=== PATIENT | male | born 1990 | race Caucasian/White ===

== ENCOUNTER 2017-02-01 11:34 | Emergency (ER) | payer SELFPAY ==
[~2017-02-01] VITALS: Ht 180.3 cm; Wt 76.0 kg
[~2017-02-01 11:34] MED LIST: BACT800T5 PO; CEPH500C3 PO; DILA8TAB4 PO
[2017-02-01 11:38] VITALS: BP 111/67; PULSE 93; RESP 13; O2SAT 96
[2017-02-01] MEDS ORDERED: SODIUM CHLOR 0.9% 1000 ML INJ 1,000 ML IV ONE (11:43)
[2017-02-01] MEDS ORDERED: ONDANSETRON HCL 4 MG/2 ML VIAL IV PUSH ONE (11:45)
[2017-02-01] MEDS ORDERED: SODIUM CHLORIDE 0.9% FLUSH 10 ML FLUSH IVF PRN (11:45)
[2017-02-01 11:46] VITALS: TEMP 97.6; O2SAT 89; O2SAT 98
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
[2017-02-01 12:18] LABS: AUTOMATED NEUTROPHIL # 3.1 TH/MM3 (1.8-7.7); BASOPHIL % 0.2 % (0.0-2.0); EOSINOPHIL # 0.1 TH/MM3 (0-0.4); EOSINOPHIL % 1.1 % (0.0-4.0); HEMATOCRIT 41.5 % (39.0-51.0); HEMO FLAGS DIFF FINAL; MEAN CELL VOLUME 91.7 FL (80.0-100.0); MEAN CORPUSCULAR HEMOGLOBIN 32.3 PG (27.0-34.0); MEAN CORPUSCULAR HGB CONC 35.2 % (32.0-36.0); MONO % 13.9 % (0.0-8.0); NEUT % 63.8 % (16.0-70.0); PLATELET COUNT 131 TH/MM3 (150-450); RED BLOOD COUNT 4.53 MIL/MM3 (4.50-5.90); RED CELL DISTRIBUTION WIDTH 12.9 % (11.6-17.2); WHITE BLOOD COUNT 4.9 TH/MM3 (4.0-11.0)
[2017-02-01 12:20] VITALS: BP 116/67; PULSE 93; RESP 17; O2SAT 100
--- NOTE | 2017-02-01 12:26 | PD ---
Physical Exam Date Seen by Provider: Feb 01, 2017 Time Seen by Provider: 12:00 Narrative I, Dr. Davey, have reviewed the advance practice practitioner's documentation and am in agreement, met with the patient face to face, made the diagnosis, and the medical decision making was done by me. *My assessment and Findings: Patient seen and evaluated with PA, please see PA note for further details. He apparently had taken heroin at around 10:30 AM, was unresponsive, EMS called to the scene and gave him Narcan, is currently awake and oriented. He denies other ingestions, suicidal ideation, or other issues. He is currently GCS 15, oriented 3. Initial lab work done for further evaluation. Planning to observe the patient in the ER for several hours until sober. Patient is reevaluated after several hours of observation and is doing well, wants to leave because he has a parole meeting to go to. At this point, he has no signs of respiratory depression, has no lethargy, and is observed for close to 3 hours, patient is released. He has been warned about his opiate overdose, and this could cause further issues including . He states understanding. Data Data Last Documented VS Vital Signs Date Time Temp Pulse Resp B/P (MAP) Pulse Ox O2 Delivery O2 Flow Rate FiO2 02/01/17 14:38 02/01/17 12:20 93 17 100 Room Air 02/01/17 11:46 97.6 02/01/17 11:46 2.00 Orders Orders Electrocardiogram (02/01/17 11:43) Complete Blood Count With Diff (02/01/17 11:43) Comprehensive Metabolic Panel (02/01/17 11:43) Chest, Single Ap (02/01/17 11:43) Iv Access Insert/Monitor (02/01/17 11:43) Ecg Monitoring (02/01/17 11:43) Oximetry (02/01/17 11:43) Ondansetron Inj (Zofran Inj) (02/01/17 11:45) Sodium Chloride 0.9% Flush (Ns Flush) (02/01/17 11:45) Sodium Chlor 0.9% 1000 Ml Inj (Ns 1000 M (02/01/17 11:43) Lactic Acid (02/01/17 11:43) Ed Discharge Order (11/28/17 14:30) Labs Laboratory Tests Test 02/01/17 11:50 White Blood Count 4.9 TH/MM3 Red Blood Count 4.53 MIL/MM3 Hemoglobin 14.6 GM/DL Hematocrit 41.5 % Mean Corpuscular Volume 91.7 FL Mean Corpuscular Hemoglobin 32.3 PG Mean Corpuscular Hemoglobin Concent 35.2 % Red Cell Distribution Width 12.9 % Platelet Count 131 TH/MM3 Mean Platelet Volume 7.8 FL Neutrophils (%) (Auto) 63.8 % Lymphocytes (%) (Auto) 21.0 % Monocytes (%) (Auto) 13.9 % Eosinophils (%) (Auto) 1.1 % Basophils (%) (Auto) 0.2 % Neutrophils # (Auto) 3.1 TH/MM3 Lymphocytes # (Auto) 1.0 TH/MM3 Monocytes # (Auto) 0.7 TH/MM3 Eosinophils # (Auto) 0.1 TH/MM3 Basophils # (Auto) 0.0 TH/MM3 CBC Comment DIFF FINAL Differential Comment Blood Urea Nitrogen 6 MG/DL Creatinine 0.83 MG/DL Random Glucose 145 MG/DL Total Protein 6.8 GM/DL Albumin 3.9 GM/DL Calcium Level 8.6 MG/DL Alkaline Phosphatase 85 U/L Aspartate Amino Transf (AST/SGOT) 30 U/L Alanine Aminotransferase (ALT/SGPT) 73 U/L Total Bilirubin 0.7 MG/DL Sodium Level 137 MEQ/L Potassium Level 3.6 MEQ/L Chloride Level 106 MEQ/L Carbon Dioxide Level 23.7 MEQ/L Anion Gap 7 MEQ/L Estimat Glomerular Filtration Rate 111 ML/MIN Lactic Acid Level 0.9 mmol/L [facility] Medical Record Reviewed: Yes Supervised Visit with GALI: Yes Diagnosis Primary Impression: Heroin overdose Scripts No Active Prescriptions or Reported Meds Disposition: DISCHARGE HOME Condition: Stable Rohith Davey MD Feb 01, 2017 12:26
[2017-02-01 12:31] LABS: ANION GAP 7 MEQ/L (5-15); AST (GOT) 30 U/L (15-37); BICARBONATE 23.7 MEQ/L (21.0-32.0); BLOOD UREA NITROGEN 6 MG/DL (7-18); CHLORIDE 106 MEQ/L (98-107); GLOMERULAR FILTRATION RATE 111 ML/MIN (>89); POTASSIUM 3.6 MEQ/L (3.5-5.1); SODIUM (NA) 137 MEQ/L (136-145)
[2017-02-01 12:35] LABS: ALKALINE PHOSPHATASE 85 U/L (45-117); ALT (GPT) 73 U/L (12-78); TOTAL BILIRUBIN ADULT 0.7 MG/DL (0.2-1.0)
--- NOTE | 2017-02-01 12:40 | RADRPT ---
EXAM DATE/TIME: 02/01/2017 11:51 [facility] COMPARISON: No previous studies available for comparison. INDICATIONS : Aspiration. Patient states he overdosed on heroin and has had vomiting and abdomen pain. MEDICAL HISTORY : None. SURGICAL HISTORY : None. ENCOUNTER: Initial ACUITY: 1 day PAIN SCORE: 0/10 LOCATION: Bilateral chest FINDINGS: A single view of the chest demonstrates the lungs to be symmetrically aerated without evidence of mas s, infiltrate or effusion. The cardiomediastinal contours are unremarkable. Osseous structures are intact. CONCLUSION: No acute cardiopulmonary process. Nathaniel Brito MD on February 01, 2017 at 12:38 Board Certified Radiologist. This report was verified electronically.
--- NOTE | 2017-02-01 14:46 | EKG ---
Date Performed: 02/01/2017 Time Performed: 11:47:36 PTAGE: 26 years EKG: Sinus rhythm NORMAL ECG NO PREVIOUS TRACING DOCTOR: Lavell Delatorre Interpretating Date/Time 02/01/2017 14:44:52
== END 2017-02-01 14:38 | disposition home or self-care (01) ==
LOC: NEPE 11:34
DX: T40.1X1A Poisoning by heroin, accidental (unintentional), initial encounter (principal); R10.13 Epigastric pain
CPT/HCPCS: 71010; 80053; 83605; 85025; 93005; 96361; 96374; 99285; J2405; J7030